=== PATIENT | male | born 1955 | race Caucasian/White ===

== ENCOUNTER 2020-09-25 22:48 | Inpatient (IN) | payer OTHER ==
[~2020-09-25] VITALS: Ht 170.2 cm; Wt 64.9 kg
--- NOTE | 2020-09-25 22:55 | NUR ---
TO ER BED 10 AMBULATORY BIB [employer] C/O HEADACHE X2 HRS, NONRADIATING MIDSTERNAL CP X1 HR TALENT CONSULTANT. NOTED PT BP 183/100. PT AAOX4 NO ACUTE DISTRESS NOTED, RESP EVEN AND UNLABORED. SKIN WARM, NONDIAPHORETIC. PLACE PT ON CARDIAC MONITORING, CONTINUOUS POX. [employer] REMAINS AT BEDSIDE. PENDING ER MD MORROW.
--- NOTE | 2020-09-25 22:56 | NUR ---
ER MD AT BEDSIDE TO EVAL PT WITH ORDERS RECEIVED.
--- NOTE | 2020-09-25 23:00 | NUR ---
STARTED SL 18G TO [facility], BLOOD DRAWN AND SENT TO LAB.
[2020-09-25 23:13] LABS: BASOPHILS # (AUTO) 0.1 /CMM (0.0-0.2); BASOPHILS % (AUTO) 0.7 % (0.0-2.0); EOSINOPHILS % (AUTO) 0.6 % (0.0-6.0); HEMATOCRIT 45 % (39-51); HEMOGLOBIN 14.8 g/dL (13.5-17.5); LYMPHOCYTES % (AUTO) 9.9 % (20.0-44.0); MEAN CORPUSCULAR HGB CONC 33 g/dl (31.0-36.0); MEAN CORPUSCULAR VOLUME 86 fL (80-96); MONOCYTES # (AUTO) 0.9 /CMM (0.1-1.30); MONOCYTES % (AUTO) 8.2 % (2.0-12.0); NEUTROPHILS # (AUTO) 8.5 /CMM (1.8-8.9); NEUTROPHILS % (AUTO) 80.6 % (43.0-81.0); PLATELET COUNT (AUTO) 173 /CMM (150-450); RED BLOOD CELL COUNT(AUTO) 5.19 MIL/uL (4.5-6.0); WHITE BLOOD COUNT (AUTO) 10.5 K/uL (4.3-11.0)
[2020-09-25 23:22] LABS: CALCIUM, SERUM 9.7 mg/dL (8.5-10.1); POTASSIUM 3.6 mmol/L (3.5-5.1)
[2020-09-25 23:28] LABS: ALBUMIN 4.4 g/dL (3.4-5.0); BILIRUBIN,DIRECT 0.1 mg/dL (0.0-0.2); BILIRUBIN,TOTAL 0.4 mg/dL (0.2-1.0); TOTAL PROTEIN, SERUM 8.2 g/dL (6.4-8.2)
[2020-09-25] MEDS ORDERED: ASPIRIN 325 MG TABLET PO ONE (23:30)
--- NOTE | 2020-09-25 23:34 | NUR ---
covid swab sent to lab
[2020-09-25] MEDS ORDERED: ASPIRIN 325 MG TABLET ONE (23:38)
[2020-09-25] MEDS ORDERED: NITROGLYCERIN 0.4 MG/TAB BOTTLE ONE (23:38)
[2020-09-26] MEDS ORDERED: NITROGLYCERIN 0.4 MG/TAB BOTTLE SL ONE
--- NOTE | 2020-09-26 00:08 | NUR ---
PANEL PAGED PER ER MD ORDER.
--- NOTE | 2020-09-26 00:11 | NUR ---
YARELY DAVIS TALKING TO DR. BURNETTE REGARDING PT ADMISSION.
--- NOTE | 2020-09-26 00:13 | NUR ---
CALLED FOR TELE BED.
--- NOTE | 2020-09-26 00:17 | NUR ---
LAB CALLED REGARDING NEGATIVE COVID RESULT.
[2020-09-26] MEDS ORDERED: ZOLPIDEM TARTRATE 5 MG TABLET PO PRN (00:30)
[2020-09-26] MEDS ORDERED: Z GUARD REMEDY 2 OZ OINT TP PRN (00:30)
[2020-09-26] MEDS ORDERED: ONDANSETRON HCL/PF 4 MG/2 ML VIAL IVP PRN (00:30)
[2020-09-26] MEDS ORDERED: ACETAMINOPHEN 325 MG TABLET PO PRN (00:30)
[2020-09-26] MEDS ORDERED: MAG HYDROX/AL HYDROX/SIMETH 30 ML UDC PO PRN (00:30)
[2020-09-26] MEDS ORDERED: MAGNESIUM HYDROXIDE 30 ML UDC PO PRN (00:30)
[2020-09-26] MEDS ORDERED: HYDROCODONE/APAP 5/325MG TABLET PO PRN (00:30)
--- NOTE | 2020-09-26 00:47 | NUR ---
pt assigned to [id number]
--- NOTE | 2020-09-26 01:03 | NUR ---
gave report to YELENA Perez for todd
[2020-09-26 02:00] VITALS: BP 147/86
--- NOTE | 2020-09-26 02:00 | NUR ---
RN NOTES pt arrived to unit accompanied by two police officers. pt able to walk to the bed pt has steady gait. pt alert and oriented x4 no pain or discomfort visible or reported at this time. pt on room air tolerating well. pt has iv access on the right ac 18g intact no swelling redness or pain at site.pt all four extremities within normal strength.abdomen non distended non tender.pt oriented to unit. call ligth within reach.afety measures followed.
[2020-09-26 04:00] VITALS: BP 149/88
[2020-09-26 04:25] VITALS: BP 147/86
--- NOTE | 2020-09-26 07:29 | NUR ---
RN NOTES PT IN BED ALERT WATCHING TELEVISION NO REPORTS OF PAIN OR DISCOMFORT AT THIS TIME. PT ON ROOM AIR TOLERATING WELL. ALL NURSING NEEDS MET CALL LIGHT WITHIN REACH WILL ENDORSE CARE TO DAY SHIFT NURSE.
--- NOTE | 2020-09-26 07:31 | NUR ---
PHYSICIAN INDUSTRIAL OPENING NOTES PT RECEIVED AWAKE IN BED IN NO ACUTE SIGNS OF DISTRESS. PT IN [employer] CUSTODY WITH TWO POLICE SITTING OUTSIDE OF HIS DOOR. A/O X4. ABLE TO MAKE NEEDS KNOWN, DENIES CHEST PAIN OR ANY DISCOMFORTS AT THIS TIME. ON TELE MONITORING WITH CURRENT READING OF NSR, HR ON THE 80'S. ON ROOM AIR, BREATHING EVEN AND UNLABORED. PT WITH NO IV ACCESS AT THIS TIME, HE STATED THAT HE REMOVED IT, WILL INSERT IV ACCESS THIS MORNING. SAFETY PRECAUTIONS IN PLACE: BED IN LOWEST LOCKED POSITION WITH SR UP X2. CALL LIGHT W/I REACH. WILL CONTINUE TO MONITOR PT ACCORDINGLY
[2020-09-26 08:00] VITALS: BP 164/100
[2020-09-26] MEDS ORDERED: EMPA25TA PO (08:30)
[2020-09-26] MEDS ORDERED: CHOL100062 PO (08:30)
[2020-09-26] MEDS ORDERED: LISI1TAB29 PO (08:30)
[2020-09-26] MEDS ORDERED: ATOR10TA PO (08:30)
[2020-09-26] MEDS ORDERED: ZINC50TA65 PO (08:30)
[2020-09-26] MEDS ORDERED: METF-440 PO (08:30)
[2020-09-26] MEDS ORDERED: ASPI-1420 PO (08:30)
--- NOTE | 2020-09-26 08:45 | NUR ---
RN NOTES/PAIN MANAGEMENT PT IS UPSET AND C/O TIGHT MID STERNAL PAIN, 7/10 SCALE PRN NORCO 5/325 TAB GIVEN AT 0843. WILL CONTINUE TO MONITOR.
--- NOTE | 2020-09-26 09:19 | NUR ---
RN NOTES PT NOTED WITH ELEVATED BP 164/108mmHg. DR WATTERS MADE AWARE WITH ORDER TO GIVE HYDRALAZINE 25MG PO AND PRN SBP >160mmHg. WILL CONTINUE TO MONITOR.
[2020-09-26] MEDS ORDERED: hydrALAZINE HCL 25 MG TABLET PO ONE (09:30)
[2020-09-26] MEDS ORDERED: hydrALAZINE HCL 25 MG TABLET PO PRN ×2 (09:30→10:00)
[2020-09-26 13:28] LABS: CHOLESTEROL 118 mg/dL (<200); HDL CHOLESTEROL 58 mg/dL (40-60); LDL 48 mg/dL (0-99); TRIGLYCERIDES 31 mg/dL (30-150)
[2020-09-26 15:50] VITALS: BP 144/82
--- NOTE | 2020-09-26 19:16 | NUR ---
MS RN CLOSING NOTES PT IN BED WATCHING TV AT THIS TIME. REMAINS ON [employer] CUSTODY WITH TWO HOOKER INSPECTOR STANDING AT OUTSIDE PT'S DOOR. A/O X4. ABLE TO MAKE NEEDS KNOWN. AMBULATORY WITH STEADY GAIT. ON ROOM AIR, TOLERATING WELL. ALL NEEDS AND CARE ATTENDED WELL. CALL LIGHT W/IN EASY REACH OF PT. PATIENT CLEARED FOR DISCHARGED TO [employer] AND IS CLEARED TO BE BOOKED AT [facility]. ENDORSED TO YELENA FOWLER.
--- NOTE | 2020-09-26 19:30 | NUR ---
PATIENT AMBULATED OFF UNIT IN NO APPARENT DISTRESS WITH 2 OFFICER ESCORTS. PATIENT HAD BEEN DISCHARGED BY PREVIOUS SHIFT.
== END 2020-09-26 19:30 | DRG 313 ==
LOC: ER 22:55 → EDBD 22:55 → TELE 09-26 00:49 → MED 09-26 10:35
PROVIDERS: ADMIT Student in an Organized Health Care Education/Training Program; ATTEND Student in an Organized Health Care Education/Training Program
DX: R07.89 Other chest pain (principal); Z86.73 Personal history of transient ischemic attack (TIA), and cerebral infarction without residual deficits; I10 Essential (primary) hypertension; I44.7 Left bundle-branch block, unspecified; E11.9 Type 2 diabetes mellitus without complications
CPT/HCPCS: 36415; 71045-TC; 80048-TC; 80061-TC; 80076-TC; 84484-TC; 85025-TC; 87081-TC; G0378